=== PATIENT | female | born 2000 | race Caucasian/White ===

== ENCOUNTER 2022-08-30 02:17 | Emergency (ER) | payer BC, MEDICAID, SELFPAY ==
[2022-08-30 02:24] VITALS: BMI 18.8
[2022-08-30 02:31] VITALS: BP 163/118; PULSE 78; RESP 16; TEMP 37.1; O2SAT 100
[2022-08-30] MEDS: diphenhydrAMINE 50 mg Capsule PO (02:32)
--- NOTE | 2022-08-30 02:34 | W.ED.GENADLT ---
HPI - General Adult General: Chief complaint: General Medical Stated complaint: withdraw from alchol, sick Time Seen by Provider: 08/30/22 02:21 Source: patient Mode of arrival: ambulatory Limitations: no limitations History of Present Illness: 22-year-old female states that she has had swelling along with pain to her tongue mainly on the left side over the last 4 days. She states she did have a seizure 4 days ago and she may have bit her tongue she is not being seen for seizures states she only wants her tongue evaluated. Denies any trouble swallowing denies any vomiting diarrhea. Associated symptoms: Deny chest pain, dyspnea, headache(s), nausea, rash or vomiting Review of Systems Const: Denies: fever(s) or chills ENMT: Reports: swelling of lips/tongue; Denies: throat pain or dental pain Card: Denies: chest pain Resp: Denies: dyspnea GI: Denies: abdominal pain, nausea, vomiting or diarrhea Musc: Denies: neck pain or back pain Skin/Breast: Denies: rash Neuro: Denies: headache(s) [facility] ED Female Reproductive History: Date of last menstrual period: 08/02/22 Physical Exam Const: COMMON NORMALS: no acute distress and patient oriented x3 HENMT: COMMON NORMALS: normocephalic and atraumatic HEAD & SCALP: normocephalic and atraumatic OTHER: Lesions noted left side of the tongue with some possible Jigna infection as well Eye: GENERAL EYE: appearance normal, both eyes and all related structures Chest: COMMONS NORMALS: normal inspection of the chest Resp: COMMON NORMALS: normal respiratory effort Cardio: COMMON NORMALS: regular rate RATE: regular rate GI: INSPECTION: Yes normal to inspection Extremity: COMMON NORMALS: normal to inspection Neuro: COMMON NORMALS: patient oriented x3 Psych: COMMON NORMALS: mental status grossly normal Skin: COMMON NORMALS: no rashes or lesions noted GENERAL SKIN EXAM: no rashes or lesions noted Course Vital Signs: Vital signs: Vital Signs Temperature 98.8 F 08/30/22 02:31 Pulse Rate 78 08/30/22 02:31 Respiratory Rate 16 08/30/22 02:31 Blood Pressure 163/118 08/30/22 02:31 Pulse Oximetry 100 08/30/22 02:31 Oxygen Delivery Me thod Room Air 08/30/22 02:31 MDM - General Adult Medical Decision Making Patient presents here with lesion to her tongue mainly left side she does have some possible oral Jigna to she may have also bit her tongue 4 days ago she is unsure we will start her on oral nystatin she is to follow-up with ENT as well for the tongue lesion return if worsening Medical Records I reviewed the patient's medical records. Lab Data I reviewed the patient's lab results. Discharge Plan Discharge Patient Disposition: Home Clinical Impression: Tongue lesion Condition: Stable Prescriptions: New nystatin 100,000 unit/mL suspension 4 ml PO QID 14 Days Qty: 224 0RF Rx Instructions: administer 1/2 of dose in each side of the mouth Discharge Orders: Discharge ED (Routine); Ordered 08/30/22 Ordered By: Charlene Warren Referrals: Teto Sanchez MD [Physician] - 1-3 days Discharge Diet: Advance as tolerated Discharge Activity: Resume usual activity Patient Instructions: Oral Candidiasis (ED) Coding Level of Care Code ED Front Desk Host for Francine Sheldon
[2022-08-30 02:53] VITALS: PULSE 92; RESP 16; O2SAT 100
--- NOTE | 2022-08-30 10:16 | DCPLANNER ---
Addendum entered by Julianna Don 09/10/22 15:31: senior insight manager received the following message from the ENT clinic regarding follow up appointment: pt returned call this am, stating this is the worst hospital ever, and she just wanted me to know. I returned pts call and informed her of us trying to reach her regarding an appt multiple times. pt stated i am drunk as hell right now, and i cant hardly swallow cause my toungue is so swollen. I addvised pt she may need to be seen by an urgent care or ER to be evaluated. i then offered pt an appt date, and she stated i dont want to see anyone for this i am going to let it heal on its own. i advised pt against this, and she still declined the appt, i informed pt if she changes her mind to please call our office and we will schedule an appt for her as soon as we can. pt voiced understanding and ended phone call, pt sounded very inebriated. On 09/06/22 @ 12:47 Jerome Hinson Wrote To Julianna Don (3) lvm On 09/05/22 @ 08:55 Julianna Don Wrote To Julianna Don (3) was an appointment scheduled for this patient? On 09/02/22 @ 12:35 Marie Ledbetter Wrote To ENT Front Office pt called back can be reached at [phone] On 09/02/22 @ 11:06 Jerome Hinson Wrote To ENT Front Office unable to reach pt, spoke to pts mother who gave me [phone] to contact her at or [phone] - no answer on first number. second number male asnwered and said she would call our office back. Addendum entered by Julianna Don 09/02/22 11:19: senior insight manager received the following message from the ENT clinic regarding follow up appointment: unable to reach pt, spoke to pts mother who gave me [phone] to contact her at or [phone] - no answer on first number. second number male asnwered and said she would call our office back. Original Note: senior insight manager had message to schedule a follow up appointment for patient with ENT. senior insight manager sent patients to the front office staff at ENT. Patients information will be printed and reviewed. Clinic will call patient with appointment information.
--- NOTE | 2022-08-30 11:23 | DCPLANNER ---
manager front called patient due to no primary care physician - no answer at this time.
== END 2022-08-30 02:52 | disposition home or self-care (01) ==
PROVIDERS: Emergency Provider Emergency Medicine
DX: M79.89 Other specified soft tissue disorders (principal); K14.8 Other diseases of tongue
CPT/HCPCS: 99283; Q0163

== ENCOUNTER 2022-09-10 17:23 | Emergency (ER) | payer BC, MEDICAID, SELFPAY ==
[2022-09-10 17:31] VITALS: BP 182/122; PULSE 90; RESP 20; TEMP 36.4; O2SAT 100; BMI 19.3
[2022-09-10 18:09] LABS: Basophils # 0.1 10^3/uL (0.0-0.1); Basophils % 1.9 %; Eosinophils # 0.1 10^3/uL (0.0-0.8); Eosinophils % 1.1 %; Hematocrit 43.5 % (37.0-47.0); Hemoglobin 13.6 g/dL (11.5-15.3); Lymphocytes # 1.3 10^3/uL (0.8-4.8); Lymphocytes % 24.5 %; Mean Corpuscular HGB Conc 31.3 g/dL (30.0-36.0); Mean Corpuscular Hemoglobin 25.7 pg (28.0-34.0); Mean Corpuscular Volume 82.1 fl (81-99); Mean Platelet Volume 9.5 fL (7.4-10.4); Monocytes # 0.4 10^3/uL (0.2-0.9); Monocytes % 8.2 %; Neutrophils # 3.36 10^3/uL (1.8-7.7); Neutrophils % 63.9 %; Nucleated Red Blood Cells % 0 %; Platelet Count 258 10^3/cmm (130-400); Red Cell Distribution Width 15.9 % (12.1-15.1); White Blood Count 5.3 10^3/uL (4.0-10.0)
--- NOTE | 2022-09-10 18:28 | W.ED.NAVMDI ---
HPI - Nausea/Vomiting/Diarrhea General: Chief complaint: Nausea/Vomiting/Diarrhea Stated complaint: n/v, sob Time Seen by Provider: 09/10/22 17:50 History of Present Illness: Presents to the ER with complaints of nausea vomiting shaking. Patient states she drinks about 3 pints of whiskey a day. Her last drink was about 11:00 today. She has been throwing up off and on all day. She has moderate minimal right lower quadrant pain. There is a possibility patient may be . Patient just does not feel good all over. Patient does not know what is causing this nothing makes it better nothing makes it worse. Patient is felt like this since 11:00 today and has had 1 prior episode about 3 weeks ago that felt similar. Review of Systems General: Reports: 10 or more systems reviewed and unremarkable except in HPI and below [facility] ED Female Reproductive History: Date of last menstrual period: 08/10/22 Physical Exam Const: COMMON NORMALS: no acute distress, average body habitus, patient oriented x3, no limitations, healthy appearing, alert and well nourished HENMT: COMMON NORMALS: normocephalic, atraumatic, hearing grossly normal bilaterally, external ears normal, Normal external nose present and moist oral mucous membranes HEAD & SCALP: normocephalic and atraumatic NOSE: Normal external nose present EXTERNAL EAR: Yes external ears normal Eye: COMMON NORMALS: Equal, round and reactive pupils present, EOMs intact bilaterally, conjunctivae normal and no scleral icterus CONJUNCTIVA: Yes conjunctivae normal PUPIL: Yes Equal, round and reactive pupils present Neck/C-Spine: COMMON NORMALS: full ROM, no lymphadenopathy, supple, no meningeal signs, no JVD and Thyroid normal THYROID: Thyroid normal Lymph: LYMPHATIC: no lymphadenopathy noted Chest: COMMONS NORMALS: normal inspection of the chest and normal palpation of entire chest wall Resp: COMMON NORMALS: normal respiratory effort, No retractions, No use of accessory muscles and clear to auscultation bilaterally AUSCULTATION: clear to auscultation bilaterally Cardio: COMMON NORMALS: no JVD, regular rhythm, S1 normal heart sound present, S2 normal heart sound present, No gallops present (Cardio), No clicks present (Cardio), No murmurs present (Cardio) and No rub (Cardio) RHYTHM: regular rhythm HEART SOUNDS: S1 normal heart sound present and S2 normal heart sound present GI: COMMON NORMALS: Normal to inspection, nondistended, normoactive bowel sounds present, Soft to palpation, non-tender, No hepatosplenomegaly present and no masses PALPATION: Yes Soft to palpation and Yes No hepatosplenomegaly present : COMMON NORMALS: Yes no CVA tenderness BLADDER/KIDNEY EXAM: Yes no CVA tenderness Back/Pelvis: COMMON NORMALS: no CVA tenderness Neuro: COMMON NORMALS: patient oriented x3 SENSORIUM/ORIENTATION: Yes alert MENINGEAL SIGNS: Yes no meningeal signs Course Vital Signs: Vital signs: Vital Signs Temperature 97.5 F L 09/10/22 17:31 Pulse Rate 75 09/10/22 19:24 Respiratory Rate 17 09/10/22 19:56 Blood Pressure 114/107 09/10/22 19:56 Pulse Oximetry 97 09/10/22 19:56 Oxygen Delivery Me thod Room Air 09/10/22 19:24 MDM - Nausea/Vomiting/Diarrhea Medical Decision Making Presented to the ER with complaints of shaking, nausea vomiting uncontrolled, chronic alcohol abuse. Physical exam was performed lab work was obtained which revealed elevated liver enzymes, and urinary tract infection. CT scan showed probable degenerating cyst in right ovary, may suggest mild cystitis due to mild wall thickening of the bladder, and mild fatty infiltrated liver. These were discussed with the patient and was decided to put on Rocephin 1 g IV tonight and to follow-up with Linda for her urinary tract infection. It was explained to patient that she should limit her drinking secondary to her elevated liver enzymes. She should find a physician and follow-up within 1 week or sooner as needed. Differential Diagnosis Likely gastroenteritis, drug-induced nausea and vomiting and dehydration; Unlikely traveler's diarrhea, food poisoning or clostridium difficile infection Medical Records I reviewed the patient's medical records. Lab Data I reviewed the patient's lab results. 09/10/22 18:02 09/10/22 18:02 Radiology Impressions Abdomen/Pelvis CT 09/10/22 20:19 IMPRESSION: 1. Mild fatty infiltration of the liver. 2. Diffuse, mild wall thickening of the bladder. In the correct clinical setting, this may suggest cystitis. Recommend correlation with laboratory findings. 3. Multiple bladder stones 4. Probable degenerating cyst in the right ovary. 5. Incidental/nonacute findings are listed in the report. Laboratory Results WBC 5.3 10^3/uL (4.0-10.0) 09/10/22 18:02 RBC 5.30 10^6/uL (4.1-5.3) 09/10/22 18:02 Hgb 13.6 g/dL (11.5-15.3) 09/10/22 18:02 Hct 43.5 % (37.0-47.0) 09/10/22 18:02 MCV 82.1 fl (81-99) 09/10/22 18:02 MCH 25.7 pg (28.0-34.0) L 09/10/22 18:02 MCHC 31.3 g/dL (30.0-36.0) 09/10/22 18:02 RDW 15.9 % (12.1-15.1) H 09/10/22 18:02 Plt Count 258 10^3/cmm (130-400) 09/10/22 18:02 MPV 9.5 fL (7.4-10.4) 09/10/22 18:02 Neut % (Auto) 63.9 % 09/10/22 18:02 Lymph % (Auto) 24.5 % 09/10/22 18:02 [place] % (Auto) 8.2 % 09/10/22 18:02 Eos % (Auto) 1.1 % 09/10/22 18:02 Baso % (Auto) 1.9 % 09/10/22 18:02 Neut # (Auto) 3.36 10^3/uL (1.8-7.7) 09/10/22 18:02 Lymph # (Auto) 1.3 10^3/uL (0.8-4.8) 09/10/22 18:02 [place] # (Auto) 0.4 10^3/uL (0.2-0.9) 09/10/22 18:02 Eos # (Auto) 0.1 10^3/uL (0.0-0.8) 09/10/22 18:02 Baso # (Auto) 0.1 10^3/uL (0.0-0.1) 09/10/22 18:02 Nucleated RBC % (auto) 0 % 09/10/22 18:02 Nucleated RBCs # 0.0 /100WBC 09/10/22 18:02 Sodium 134 mmol/L (136-145) L 09/10/22 18:02 Potassium 3.9 mmol/L (3.5-5.1) 09/10/22 18:02 Chloride 97 mmol/L (98-107) L 09/10/22 18:02 Carbon Dioxide 22 mmol/L (22-29) 09/10/22 18:02 Anion Gap 18.9 (5-19) 09/10/22 18:02 BUN 9 mg/dL (6-20) 09/10/22 18:02 Creatinine 0.6 mg/dL (0.5-0.9) 09/10/22 18:02 GFR Calculation 126.2 mL/min (90-130) 09/10/22 18:02 Glucose 111 mg/dL (65-115) 09/10/22 18:02 Calculated Osmolality 277 mOsm/kg (285-295) L 09/10/22 18:02 Calcium 9.7 mg/dL (8.5-10.5) 09/10/22 18:02 Magnesium 1.5 mg/dL (1.7-2.3) L 09/10/22 18:02 Total Bilirubin 0.8 mg/dL (0.15-1.2) 09/10/22 18:02 AST 177 U/L (0-32) H 09/10/22 18:02 ALT 156 U/L (0-33) H 09/10/22 18:02 Alkaline Phosphatase 139 U/L (35-105) H 09/10/22 18:02 Total Protein 8.0 g/dL (6.6-8.7) 09/10/22 18:02 Albumin 4.1 g/dL (3.5-5.2) 09/10/22 18:02 Globulin 3.9 g/dL (1.3-4.6) 09/10/22 18:02 Lipase 22 U/L (13-60) 09/10/22 18:02 Prolactin 5.30 ng/mL (4.8-23.3) 09/10/22 18:02 HCG, Qual Negative (Negative) 09/10/22 19:19 Urine Color Yellow (Yellow) 09/10/22 19:19 Urine Appearance Cloudy (CLEAR) A 09/10/22 19:19 Urine pH 8 (5-7) H 09/10/22 19:19 Ur Specific [place] 1.015 (1.005-1.030) 09/10/22 19:19 Urine Protein 2+ (Negative) H 09/10/22 19:19 Urine Glucose (UA) Norm (Normal) 09/10/22 19:19 Urine Ketones 1+ (Negative) H 09/10/22 19:19 Urine Blood Trace (Negative) H 09/10/22 19:19 Urine Nitrate Negative (Negative) 09/10/22 19:19 Urine Bilirubin Neg (Negative) 09/10/22 19:19 Prot Sulfosalicylic Acd Positive (Negative) 09/10/22 19:19 Urine Urobilinogen Neg mg/dL (Negative) 09/10/22 19:19 Ur Leukocyte Esterase 2+ (Negative) H 09/10/22 19:19 Urine RBC 0-4 /hpf (0-2) H 09/10/22 19:19 Urine WBC 10-15 /hpf (0-5) H 09/10/22 19:19 Ur Squamous Epith Cells 5-10 /hpf (0-5) H 09/10/22 19:19 Amorphous Sediment Not Reportable 09/10/22 19:19 Urine Bacteria 3+ /hpf (NONE) H 09/10/22 19:19 Urine Mucus 1+ /hpf 09/10/22 19:19 Urine Opiates Screen Negative ng/mL (Negative) 09/10/22 19:19 Ur Barbiturates Screen Negative ng/mL (Negative) 09/10/22 19:19 Ur Phencyclidine Scrn Negative ng/mL (Negative) 09/10/22 19:19 Ur Amphetamines Screen Negative ng/mL (Negative) 09/10/22 19:19 U Benzodiazepines Scrn Positive ng/mL (Negative) H 09/10/22 19:19 Urine Cocaine Screen Negative ng/mL (Negative) 09/10/22 19:19 U Marijuana (THC) Screen Positive ng/mL (Negative) H 09/10/22 19:19 Ethyl Alcohol < 10 mg/dL (0-10) 09/10/22 18:02 Discharge Plan Discharge Patient Disposition: Home Clinical Impression: Elevated liver enzymes Nausea & vomiting Qualifiers: Vomiting type: unspecified Qualified Code(s): R11.2 - Nausea with vomiting, unspecified Urinary tract infection Qualifiers: Urinary tract infection type: acute cystitis Hematuria presence: with hematuria Qualified Code(s): N30.01 - Acute cystitis with hematuria Condition: Stable Prescriptions: New ciprofloxacin HCl 500 mg tablet 500 mg PO Q12H Qty: 20 0RF No Action nystatin 100,000 unit/mL suspension 4 ml PO QID 14 Days Qty: 224 0RF Rx Instructions: administer 1/2 of dose in each side of the mouth Discharge Orders: Discharge ED (Routine); Ordered 09/10/22 Ordered By: Ck Marroquin Patient Instructions: Acute Nausea and Vomiting (ED), Urinary Tract Infection - Women Activity Restrictions/Additional Instructions: Please take all your antibiotics as directed, please limit alcoholic beverages. Please follow-up with your family practice doctor within 1 week for further evaluation and treatment if needed. Coding Level of Care Code ED Gold Beater for Francine Sheldon
[2022-09-10 18:33] LABS: Alanine Aminotransferase 156 U/L (0-33); Albumin Level 4.1 g/dL (3.5-5.2); Alkaline Phosphatase 139 U/L (35-105); Anion Gap 18.9 (5-19); Aspartate Amino Transferase 177 U/L (0-32); Blood Urea Nitrogen 9 mg/dL (6-20); Calcium 9.7 mg/dL (8.5-10.5); Carbon Dioxide 22 mmol/L (22-29); Chloride 97 mmol/L (98-107); Globulin 3.9 g/dL (1.3-4.6); Glomerular Filtration Rate 126.2 mL/min (90-130); Glucose 111 mg/dL (65-115); Lipase 22 U/L (13-60); Magnesium 1.5 mg/dL (1.7-2.3); Osmolality Calculated 277 mOsm/kg (285-295); Potassium 3.9 mmol/L (3.5-5.1); Sodium 134 mmol/L (136-145); Total Bilirubin 0.8 mg/dL (0.15-1.2)
[2022-09-10 18:34] LABS: Alcohol Level < 10 mg/dL (0-10)
[2022-09-10] MEDS: sodium chloride 0.9% 1,000 ML 999 ML IV (18:34)
[2022-09-10] MEDS: ondansetron 2 mg/ML SDV 2 mL 4 MG IVP (18:36)
[2022-09-10 19:24] VITALS: BP 175/125; PULSE 75; O2SAT 99
--- NOTE | 2022-09-10 19:26 | PC.NURSE ---
Report from FARIDA Gutiérrez. Pt resting in bed with fiance at bedside. Pt denies any needs at this time.
[2022-09-10 19:37] LABS: HCG Qualitative Urine. Negative (Negative)
[2022-09-10 19:40] LABS: Add Urine Microscopic? YES; Bilirubin Urine Neg (Negative); Blood Urine Trace (Negative); Glucose Urine UA Norm (Normal); Ketones Urine 1+ (Negative); Leukocyte Esterase Urine 2+ (Negative); Nitrate Urine Negative (Negative); Protein Urine 2+ (Negative); Specific Gravity, Urine 1.015 (1.005-1.030); Sulfosalicylic Acid Urine Positive (Negative); Urine Appearance Cloudy (CLEAR); Urine Color Yellow (Yellow); Urobilinogen Urine Neg (Negative); pH Urine 8 (5-7)
[2022-09-10 19:41] LABS: Add Urine Culture? Yes; Bacteria Urine 3+ /hpf; Mucus Urine 1+ /hpf; RBC Urine 0-4 /hpf (0-2)
[2022-09-10 19:44] LABS: Amphetamines Screen Urine Negative (Negative); Barbiturates Screen Urine Negative (Negative); Benzodiazepines Screen Urine Positive (Negative); Cocaine Screen Urine Negative (Negative); Opiate Screen Urine Negative (Negative); PCP Screen Urine Negative (Negative); THC Screen Urine Positive (Negative)
[2022-09-10 19:56] VITALS: BP 114/107; RESP 17; O2SAT 97
--- NOTE | 2022-09-10 20:19 | CTR_ITS ---
PROCEDURE INFORMATION: Exam: CT Abdomen And Pelvis With Contrast Exam date and time: 09/10/2022 8:29 PM Age: 22 years old Clinical indication: Pain and abnormal findings; Abnormal lab test; Elevated liver enzymes; Nausea and vomiting; Abdominal pain; Patient HX: Ruq pain with n/v. Elevated lft; Additional info: N/v ruq abd pain, elevated lfts TECHNIQUE: Imaging protocol: Computed tomography of the abdomen and pelvis with contrast. Sagittal and coronal reformatted images were created and reviewed. Radiation optimization: All CT scans at this facility use at least one of these dose optimization techniques: automated exposure control; mA and/or kV adjustment per patient size (includes targeted exams where dose is matched to clinical indication); or iterative reconstruction. Contrast material: OMNI 350; Contrast volume: 80 ml; Contrast route: INTRAVENOUS (IV); REPORTING DATA: Count of CT and Cardiac NM exams in prior 12 months: This patient has received 0 known CTs and 0 known cardiac nuclear medicine studies in the 12 months prior to the current study. COMPARISON: No relevant prior studies available. RADIATION DOSE METRICS: Total DLP (mGy-cm): 321.45 FINDINGS: Lungs: Visualized lungs are clear. Pleural spaces: No pleural effusion. Heart: Visualized portions of the heart are unremarkable. Liver: Diffuse, mildly decreased attenuation in the liver. Findings are consistent with mild fatty infiltration. Gallbladder and bile ducts: The gallbladder is unremarkable. No biliary ductal dilatation. Pancreas: The pancreas is unremarkable. No pancreatic ductal dilatation. Spleen: The spleen is unremarkable. Adrenal glands: The right and left adrenal glands are unremarkable. Kidneys and ureters: The right and left kidneys are unremarkable. The right and left ureters are unremarkable. Stomach and bowel: No obstruction. No mucosal thickening. Appendix: The appendix is visualized and is unremarkable. No findings to suggest acute appendicitis. Intraperitoneal space: No free intraperitoneal air. No ascites. No loculated fluid collections to suggest an abscess. Vasculature: No evidence for aortic aneurysm or aortic dissection. Hepatic veins, portal veins, splenic vein, and SMV are patent. Lymph nodes: No lymphadenopathy. Urinary bladder: Diffuse, mild wall thickening of the bladder. Multiple bladder stones, the largest measures 1.2 x 1.0 cm (series 3, image 1). Reproductive: The uterus is unremarkable. Right ovarian cyst with an enhancing wall, possibly representing a degenerating ovarian cyst. This measures 1.6 x 1.3 cm (series 3, image 65). Bones/joints: No acute fracture. Soft tissues: Multiple subcentimeter follicles in both right and left ovaries. CT/CT abdomen pelvis w con* [id number] IMPRESSION: 1. Mild fatty infiltration of the liver. 2. Diffuse, mild wall thickening of the bladder. In the correct clinical setting, this may suggest cystitis. Recommend correlation with laboratory findings. 3. Multiple bladder stones 4. Probable degenerating cyst in the right ovary. 5. Incidental/nonacute findings are listed in the report.
[2022-09-10] MEDS: iohexol 350 mg/mL 500 mL Btl (per mL) IV (20:34)
[2022-09-10 21:46] VITALS: BP 152/100; RESP 16; O2SAT 97
[2022-09-10] MEDS: cefTRIAXone 1,000 MG in sodium chloride 0.9% (plus) 50 ML 100 MG IV (21:49)
[2022-09-10 21:58] VITALS: BP 152/102; PULSE 75; O2SAT 100
== END 2022-09-10 21:59 | disposition home or self-care (01) ==
PROVIDERS: Emergency Provider Emergency Medicine
DX: R11.2 Nausea with vomiting, unspecified (principal); N39.0 Urinary tract infection, site not specified; R74.01 Elevation of levels of liver transaminase levels
CPT/HCPCS: 36415; 74177; 80053; 80306; 80307; 81001; 81025; 83690; 83735; 84146; 85025; 87077; 87086; 87186; 96365; 96375; 99285; J0696; J2405; J7030; Q9967

== ENCOUNTER 2022-10-20 11:46 | Emergency (ER) | payer BC, MEDICAID, SELFPAY ==
[2022-10-20 11:47] VITALS: BP 168/115; PULSE 123; RESP 18; TEMP 36.9; O2SAT 98
[2022-10-20 12:43] VITALS: BP 181/124; PULSE 100; O2SAT 93
--- NOTE | 2022-10-20 13:23 | W.ED.GENADLT ---
HPI - General Adult General: Chief complaint: General Medical Stated complaint: sent by daly/high bp Time Seen by Provider: 10/20/22 12:43 Source: patient and family Mode of arrival: ambulatory Limitations: no limitations History of Present Illness: Patient is a 22-year-old female arrives to the emergency department stating that her primary care provider sent her here for further evaluation of hypertension. Patient arrives hypertensive with blood pressures in the 160s?170s/110s?120s. Patient upon initial examination is clearly intoxicated. Family states she drinks approximately a pint of hard alcohol daily and has so for years. She denies drug use. Patient denies any physical symptoms at this time. Looking at previous documentation she has ED visits out 2 months ago and blood pressures were significantly elevated at that time as well. Family states blood pressure has been this elevated for approximately a year now. They are unsure why patient has not been started on antihypertensive medications although they state that she is not a very good patient and often times will not follow-up with her primary care providers. She currently is not complaining of a headache or visual changes. She denies shortness of breath or difficulty breathing. Onset (ago): month(s) Relieving factors: none Exacerbating factors: none Associated symptoms: Reports no associated symptoms; Deny chest pain, dyspnea, headache(s), malaise, nausea, rash, palpitations, syncope or vomiting Treatments prior to arrival: none Review of Systems Const: Denies: fever(s), chills, body aches, fatigue or malaise Eyes: Denies: change in vision or blurry vision Card: Denies: chest pain, palpitations, irregular heart rhythm, lightheadedness, syncope or dyspnea on exertion Resp: Denies: dyspnea, productive cough or pain on inspiration GI: Denies: abdominal pain, nausea, vomiting, heartburn or diarrhea : Denies: dysuria Musc: Denies: neck pain, back pain or joint pain Skin/Breast: Denies: rash Neuro: Denies: headache(s), numbness in extremities, weakness in extremities, sensory changes or dizziness Physical Exam Const: COMMON NORMALS: average body habitus, patient oriented x3, alert and well nourished EXAM LIMITATIONS: other limitations (intoxicated) GENERAL APPEARANCE: cooperative, disheveled and odor of alcohol detected ORIENTATION/CONSCIOUSNESS: Yes awake, Yes oriented to person, Yes oriented to place and Yes oriented to time HENMT: COMMON NORMALS: normocephalic and atraumatic HEAD & SCALP: normal to inspection, normocephalic and atraumatic Eye: GENERAL EYE: appearance normal, both eyes and all related structures Neck/C-Spine: COMMON NORMALS: full ROM, no lymphadenopathy, no meningeal signs and no JVD GENERAL: Yes normal visual inspection Resp: COMMON NORMALS: normal respiratory effort and clear to auscultation bilaterally AUSCULTATION: clear to auscultation bilaterally Cardio: COMMON NORMALS: no JVD, regular rate and regular rhythm RATE: regular rate RHYTHM: regular rhythm Back/Pelvis: COMMON NORMALS: thoracic and lumbar spine normal to inspection, no thoracic nor lumbar tenderness and thoraco-lumbar ROM normal Extremity: COMMON NORMALS: normal to inspection, full ROM, capillary refill normal, no joint enlargement, no clubbing, cyanosis or edema, no calf tenderness and no pedal edema GENERAL: Yes normal exam except as noted Neuro: MANUELA COMA SCALE: document GCS findings Manuela coma scale eye opening: Spontaneous Manuela coma scale verbal response: Orientated Manuela coma scale motor response: Obey commands Manuela coma scale total score: 15 COMMON NORMALS: patient oriented x3, CN's II-XII intact bilaterally, moves all extremities, no focal motor deficits, no sensory deficits noted and gait normal SENSORIUM/ORIENTATION: Yes alert, Yes oriented to person, Yes oriented to place and Yes oriented to time MENINGEAL SIGNS: Yes no meningeal signs Skin: COMMON NORMALS: no rashes or lesions noted GENERAL SKIN EXAM: no rashes or lesions noted Course Vital Signs: Vital signs: Vital Signs Temperature 98.5 F 10/20/22 11:47 Pulse Rate 108 H 10/20/22 13:51 Respiratory Rate 18 10/20/22 11:47 Blood Pressure 178/127 10/20/22 13:51 Pulse Oximetry 94 10/20/22 13:51 Oxygen Delivery Me thod Room Air 10/20/22 12:43 [facility] - General Adult Medical Decision Making Shortly after my initial examination patient was seen walking down the [place] stating that she was leaving AGAINST MEDICAL ADVICE that she does not want to be poked for blood work. I escorted patient back to her room and spoke to her about the need for further work-up for her significant hypertension but she declines. I do not have any reason to keep patient in the ED against her will. Patient has a safe ride home. She signed AMA form and left. Lab Data Laboratory Results Urine Color Straw (Yellow) 10/20/22 13:42 Urine Appearance Clear (CLEAR) 10/20/22 13:42 Urine pH 7 (5-7) 10/20/22 13:42 Ur Specific [place] 1.005 (1.005-1.030) 10/20/22 13:42 Urine Protein 3+ (Negative) H 10/20/22 13:42 Urine Glucose (UA) Norm (Normal) 10/20/22 13:42 Urine Ketones Negative (Negative) 10/20/22 13:42 Urine Blood 2+ (Negative) H 10/20/22 13:42 Urine Nitrate Negative (Negative) 10/20/22 13:42 Urine Bilirubin Neg (Negative) 10/20/22 13:42 Urine Urobilinogen Norm mg/dL (Negative) 10/20/22 13:42 Ur Leukocyte Esterase Negative (Negative) 10/20/22 13:42 Urine RBC 0-4 /hpf (0-2) H 10/20/22 13:42 Urine WBC 0-4 /hpf (0-5) H 10/20/22 13:42 Ur Squamous Epith Cells 5-10 /hpf (0-5) H 10/20/22 13:42 Amorphous Sediment Not Reportable 10/20/22 13:42 Urine Bacteria Trace /hpf (NONE) 10/20/22 13:42 Urine Opiates Screen Negative ng/mL (Negative) 10/20/22 13:42 Ur Barbiturates Screen Negative ng/mL (Negative) 10/20/22 13:42 Ur Phencyclidine Scrn Negative ng/mL (Negative) 10/20/22 13:42 Ur Amphetamines Screen Negative ng/mL (Negative) 10/20/22 13:42 U Benzodiazepines Scrn Negative ng/mL (Negative) 10/20/22 13:42 Urine Cocaine Screen Negative ng/mL (Negative) 10/20/22 13:42 U Marijuana (THC) Screen Negative ng/mL (Negative) 10/20/22 13:42 Discharge Plan Discharge Patient Disposition: Left Against Medical Advice Clinical Impression: Alcohol intoxication, Chronic hypertension Condition: Stable Prescriptions: No Action metronidazole 0.75 % (37.5mg/5 gram) gel 1 appful VAGINAL BEDTIME Rx Instructions: for 7 days (rx filled 10/12/22 pt stop using 10/18/22) Jeane 0.35 mg tablet 0.35 mg PO DAILY Rx Instructions: not started as of 10/20/22 Coding Level of Care Code ED Ecological Risk Assessor for Francine Sheldon
[2022-10-20 13:26] VITALS: BP 178/127; PULSE 108; O2SAT 94
[2022-10-20] MEDS: cloNIDine 0.1 mg Tablet PO (13:31)
[2022-10-20 13:51] VITALS: BP 178/127; PULSE 108; O2SAT 94
[2022-10-20 14:25] LABS: Add Urine Microscopic? YES; Bilirubin Urine Neg (Negative); Blood Urine 2+ (Negative); Glucose Urine UA Norm (Normal); Ketones Urine Negative (Negative); Leukocyte Esterase Urine Negative (Negative); Nitrate Urine Negative (Negative); Protein Urine 3+ (Negative); Specific Gravity, Urine 1.005 (1.005-1.030); Urine Appearance Clear (CLEAR); Urine Color Straw (Yellow); Urobilinogen Urine Norm (Negative); pH Urine 7 (5-7)
[2022-10-20 14:32] LABS: Amphetamines Screen Urine Negative (Negative); Barbiturates Screen Urine Negative (Negative); Benzodiazepines Screen Urine Negative (Negative); Cocaine Screen Urine Negative (Negative); Opiate Screen Urine Negative (Negative); PCP Screen Urine Negative (Negative); THC Screen Urine Negative (Negative)
[2022-10-20 14:34] LABS: Add Urine Culture? No; Bacteria Urine TRACE /hpf; RBC Urine 0-4 /hpf (0-2); WBC Urine 0-4 /hpf (0-5)
== END 2022-10-20 13:51 | disposition left against medical advice (07) ==
PROVIDERS: Emergency Provider Physician Assistant
DX: I10 Essential (primary) hypertension (principal); F10.129 Alcohol abuse with intoxication, unspecified; Z53.21 Procedure and treatment not carried out due to patient leaving prior to being seen by health care provider
CPT/HCPCS: 80306; 81001; 99284